=== PATIENT | male | born 1995 | race Caucasian/White ===

== ENCOUNTER 2022-07-22 20:21 | Emergency (ER) | payer OTHER ==
[~2022-07-22] VITALS: Ht 170.2 cm; Wt 72.7 kg
[2022-07-22 20:23] VITALS: BP 130/72
[2022-07-22 20:55] LABS: COVID AG,FIA SOURCE NASAL SWAB
[2022-07-22 21:23] LABS: INFLUENZA TYPE A NEGATIVE FOR TYPE A (NEGATIVE); INFLUENZA TYPE B NEGATIVE FOR TYPE B (NEGATIVE)
[2022-07-22] MEDS ORDERED: OXYMETAZOLINE HCL 0.05% 15 ML NASAL SPRAY NASAL ONE (23:00)
[2022-07-22] MEDS ORDERED: BENZ-227 PO (23:03)
== END 2022-07-22 23:31 | disposition home or self-care (01) ==
LOC: EMS 20:25
DX: J06.9 Acute upper respiratory infection, unspecified (principal); Z90.49 Acquired absence of other specified parts of digestive tract; Z20.822 Contact with and (suspected) exposure to COVID-19
CPT/HCPCS: 87804; 99283

== ENCOUNTER 2022-10-13 07:46 | Emergency (ER) | payer OTHER ==
[~2022-10-13] VITALS: Ht 177.8 cm; Wt 75.0 kg
[~2022-10-13 07:46] MED LIST: BENZ-227 PO
[2022-10-13] MEDS ORDERED: LIDOCAINE 1% 10 ML VIAL SQ ONE (09:45)
[2022-10-13] MEDS ORDERED: CEPH-558 PO (10:58)
[2022-10-13] MEDS ORDERED: SULF-261 PO (10:59)
[2022-10-13] MEDS ORDERED: PERCT PO (10:59)
[2022-10-13 11:34] VITALS: BP 114/74
== END 2022-10-13 11:43 | disposition home or self-care (01) ==
LOC: EMS 07:46
DX: L72.9 Follicular cyst of the skin and subcutaneous tissue, unspecified (principal); L98.9 Disorder of the skin and subcutaneous tissue, unspecified; Z90.49 Acquired absence of other specified parts of digestive tract
CPT/HCPCS: 99283; J3490